=== PATIENT | female | born 1965 | race Caucasian/White ===

== ENCOUNTER → 2016-12-17 15:50 | Outpatient (CLI) | payer BC ==
[2010-02-13 06:09] VITALS: BMI 29.0
== END | disposition home or self-care (01) ==
LOC: D.MAMMO 13:00
DX: Z12.31 Encounter for screening mammogram for malignant neoplasm of breast (principal)

== ENCOUNTER 2017-10-13 07:28 | Day surgery (SDC) | payer BC ==
[~2017-10-13] VITALS: Ht 180.3 cm; Wt 1009.1 kg
--- NOTE | ~2017-10-13 | OP ---
PATIENT NAME: KATHI CASTANEDA MEDICAL RECORD: [id number] LOCATION:[facility] ADMISSION DATE: SURGEON: ALINA CORREA DO DATE OF OPERATION: 10/13/2017 PROCEDURE: Colonoscopy with polypectomy. INDICATIONS FOR PROCEDURE: Screening for colorectal cancer. SCOPE: Olympus video pediatric colonoscope. MEDICATIONS: Propofol 600 mg IV per anesthesia. WITHDRAWAL TIME: 21 minutes. ESTIMATED BLOOD LOSS: Minimal. COMPLICATIONS: None. FINDINGS: Informed consent was given. The patient was made comfortable with the above medication. After reaching an adequate level of sedation by slow IV push, the patient was placed on her left side. A digital rectal examination was performed and revealed external hemorrhoids without bleeding. The endoscope was advanced under direct visualization through the rectum to the cecum, confirmed by the presence of the appendiceal orifice and ileocecal valve. The endoscope was slowly withdrawn and mucosa was carefully examined. The prep quality was excellent. There were multiple polyps visualized on today's examination. The first was located in the cecum. It was a benign appearing sessile polyp, which measured approximately 3-4 mm in diameter. It was removed using a hot forceps in 1 piece and completely retrieved. In the transverse colon, there were four separate polyps. Three of these were slightly larger and measured approximately 5-6 mm in diameter. They were all benign appearing and sessile and removed using a hot snare in 1 piece and completely retrieved. The fourth polyp was smaller and measured approximately 3-4 mm in diameter. It was benign appearing sessile and was removed using hot forceps in 1 piece and completely retrieved. In the descending colon, there was a single benign appearing sessile polyp, which measured approximately 4 mm in diameter. It was removed using hot forceps in 1 piece and completely retrieved. In the sigmoid colon, there was a single, benign appearing sessile polyp, which measured approximately 3 mm in diameter. It was removed using hot forceps in 1 piece and completely retrieved. No diverticula were visualized on today's examination. Retroflexion was performed in the rectum with a normal appearing rectal wall. The endoscope was then withdrawn from the patient. The patient tolerated the procedure well and there were no complications. IMPRESSION: 1. Multiple polyps as described above, removed using a combination of a hot snare and hot forceps. 2. Otherwise, normal colonoscopy to cecum. PLAN AND RECOMMENDATIONS: 1. Discharge home when recovery parameters are met. 2. Follow up biopsy specimen results. 3. High fiber diet. 4. Consider supplementing medications with MiraLax 1 cap daily. OPERATIVE REPORT [id number] KATHI CASTANEDA 5. Recommend a repeat colonoscopy in 2-3 years for continued colorectal cancer screening purposes. TRANSINT:[id number] Voice Confirmation ID: [id number] DOCUMENT ID: [id number] ALINA CORREA DO at 1236 CC: [id number] DICTATION DATE: 10/13/17 1030 RECEIVER/LABORER: 10/13/17 1146 [facility] 10/13/17 [facility] [address] [place] [address]
[2017-10-13 07:44] LABS: HEMATOCRIT 45.4 % (36.0-48.0); HEMOGLOBIN 15.1 g/dL (12-16); MCH 30.4 pg (26.0-34.0); MCHC 33.3 g/dL (31.0-37.0); MCV 91.3 fL (80.0-100.0); MEAN PLATELET VOLUME 10.2 fL (7.4-10.4); RBC 4.97 10x6/uL (4.00-5.40); RDW 13.9 % (11.5-14.5); WBC 10.4 10x3/uL (4.8-10.8)
[2017-10-13 07:59] VITALS: BP 114/73; Ht 180.3 cm; Wt 1009.1 kg
== END 2017-10-13 11:15 | disposition home or self-care (01) ==
LOC: D.OPS 07:28
PROVIDERS: Anesthesiology
DX: Z12.11 Encounter for screening for malignant neoplasm of colon (principal); K63.5 Polyp of colon; Z01.812 Encounter for preprocedural laboratory examination

== ENCOUNTER 2018-12-04 09:00 | Outpatient (CLI) | payer BC ==
[2017-10-13 07:59] VITALS: BMI 310.4
== END 2018-12-04 10:00 | disposition home or self-care (01) ==
LOC: D.MAMMO 09:00
PROVIDERS: ATTEND Family Medicine
DX: Z12.31 Encounter for screening mammogram for malignant neoplasm of breast (principal)